=== PATIENT | female | born 1980 | race Caucasian/White ===

== ENCOUNTER 2017-02-06 13:02 | Day surgery (SDC) | payer BC ==
[2017-02-06] MEDS ORDERED: Acetaminophen 500 MG TAB PO SCH (14:00)
[2017-02-06] MEDS ORDERED: Iron Sucrose Complex 500 MG, Admixture Fee 1 EACH in Sodium Chloride 0.9% 250 ML 250 ML IVPB SCH (14:00)
[2017-02-06 14:20] VITALS: BMI 26.6
[2017-02-06] MEDS ORDERED: FLU VACC QS2017-18 36 mo. & older 0.5 ML SYRINGE IM ONE (21:00)
== END 2017-02-06 20:00 | disposition home or self-care (01) ==
LOC: L&D/OP 13:02
PROVIDERS: ATTEND Obstetrics & Gynecology
DX: O99.019 Anemia complicating pregnancy, unspecified trimester (principal); D64.9 Anemia, unspecified; Z88.1 Allergy status to other antibiotic agents; Z3A.00 Weeks of gestation of pregnancy not specified
CPT/HCPCS: 96361; 96365; 96366; J1756; J7050

== ENCOUNTER 2017-08-03 10:17 | Inpatient (IN) | payer BC ==
[2017-08-03] MEDS: Lactated Ringer's 1,000 ML IV SCH (11:00)
[2017-08-03] MEDS ORDERED: Promethazine HCl 25 MG/ML VIAL IM PRN ×2 (11:04→12:32)
[2017-08-03] MEDS ORDERED: Ondansetron HCl/PF 4 MG/2 ML Vial IVP PRN ×2 (11:04→12:32)
[2017-08-03] MEDS ORDERED: Acetaminophen 500 MG TAB PO PRN (11:04)
[2017-08-03] MEDS ORDERED: Ibuprofen 800 MG TAB PO PRN (11:06)
[2017-08-03] MEDS ORDERED: Lidocaine 1% (PF) 30 ML VIAL SC PRN (11:06)
[2017-08-03] MEDS ORDERED: NS / Oxytocin 40 units/1000ml 1,000 ML IV PRN (11:06)
[2017-08-03] MEDS ORDERED: Lactated Ringer's 1,000 ML IV SCH (11:15)
[2017-08-03] MEDS ORDERED: Betamet Acet/Betamet Na Ph 30 MG/5 ML VIAL IM SCH (11:15)
--- NOTE | 2017-08-03 11:17 | PDOC.LDHP ---
Labor and Delivery H&P Chief complaint: contractions, loss of fluid HPI: 37 year old at 36.0 wks presents due to LoF at 05:30 this AM and contractions. History of anemia in requiring iron transfusion. No PMH. Denies vaginal discharge or bleeding. Denies headache, RUQ pain, swelling, or shortness of breath. Denies fever or chills. Current gestational age (weeks): 36 OB History Details: 1. AMA 2. Anemia of Current complications: other (Anemia) Abnormal US findings: Yes (Large uterine fibroid) Current medications: pre- vitamins, iron (qd) Social history: none - Physical Exam Vital signs reviewed and normal: yes General: NAD, breathing through contractions Heart: RRR Lungs: CTAB Abdomen: gravid Extremeties: no edema FHT: category 1, variability present [place] contractions every: q3-4 min - Vaginal Exam cm dilated: 5 - OB Labs Blood type: B RH: positive Antibody Screen: negative HIV: negative RPR: negative HEPSAg: negative GBS: negative Rubella: non-immune - Assessment L&D Assessment: term patient in labor - Plan Plan: admit to L&D <Kiana Chakraborty - Last Filed: 08/03/17 11:16> Chief complaint: contractions HPI: Pt also has h/o large fibroid uterus, largest 12 cm (posterior) and has a hx hysteroscopic morcellation of intracavitary fibroid. Pt has had mild range BPs recently and presents with severe range BPs today. Dating criteria: last menstrual period (c/w 10 week CRL) Grav: 1 Para: 0 Current complications: other (Anemia, fibroid uterus, AMA) Past Medical History: Anemia Previous surgical history: other (Hysteroscopic morcellation of fibroid) - Physical Exam Vital signs reviewed and normal: yes Abnormal vital signs: HTN noted on admission, Pt given procardia and stadol with improvement - Vaginal Exam Effacement: 100% Station: -1 - OB Labs Additional Labs: NIPT and msAFP negative - Assessment L&D Assessment: term patient in labor 36w0d IUP PPROM PTL Severe range HTN, concern for possible severe pre-Eclampsia H/O anemis, resolved Uterine fibroids GBS unknown - Plan Plan: labor augmentation if indicated, GBS antibiotic prophylaxis, informed consent obtained, magnesium for seizure prophylaxis, anesthesia consult for pain management -: Due to GA, BMTZ dose given for FLM Pre-eclampsia labs still pending, start magnesium for seizure PPX due to severity of BPs at this time. Uterotonics present for delivery due to risk of PPH related to fibroids. <Cecilia Daugherty - Last Filed: 08/03/17 12:38> Allergies/Adverse Reactions: Allergies Allergy/AdvReac Type Severity Reaction Status Date / Time cefaclor [From Ceclor] Allergy Intermediate Hives Verified 02/06/17 14:12
[2017-08-03] MEDS ORDERED: NIFEdipine 10 MG CAP PO SCH (11:30)
[2017-08-03] MEDS ORDERED: NIFEdipine 10 MG CAP ONE (11:31)
[2017-08-03] MEDS ORDERED: Magnesium Sulfate 20 gm/500 ml 20 GM/500 ML BAG ONE (11:32)
[2017-08-03 11:35] LABS: Hemoglobin 13.7 g/dL (12.0-16.0); Mean Corpuscular HGB CONC 34.7 g/dL (32.0-36.0); Mean Corpuscular Hemoglobin 30.6 pg (27.0-31.0); Mean Corpuscular Volume 88.1 fl (81.0-99.0); Platelet Count 166 thou/uL (130-400); RBC Distribution Width 18.4 % (11.5-14.5); Red Blood Cell (RBC) Count 4.48 mill/uL (4.20-5.40); White Blood Cell (WBC) Count 8.5 thou/uL (4.8-10.8)
[2017-08-03] MEDS: Magnesium Sulfate 20 gm/500 ml 20 GM/500 ML BAG IVPB SCH ×2 (11:38→19:56)
[2017-08-03] MEDS ORDERED: Penicillin G Potassium 5 MILL.UNITS VIAL ONE (11:49)
[2017-08-03] MEDS ORDERED: Butorphanol Tartrate 1 MG/ML VIAL ONE (11:49)
[2017-08-03] MEDS ORDERED: Calcium Gluc 4.6 MEQ/10 ML (100 MG/ML) SLOW IVP PRN (11:50)
[2017-08-03] MEDS ORDERED: Labetalol HCl 100 MG/20 ML VIAL SLOW IVP PRN (11:58)
[2017-08-03] MEDS ORDERED: Penicillin G Potassium 5 MILL.UNITS in Sodium Chloride 0.9% 100 ML IVPB SCH (12:00)
[2017-08-03] MEDS ORDERED: Magnesium Sulfate 20 GM/WATER 500 ML BAG IVPB SCH (12:00)
[2017-08-03] MEDS ORDERED: DISCONTINUE ALL PREVIOUS NARCOTICS FS SCH (12:00)
[2017-08-03] MEDS ORDERED: Bupivacaine 0.5% 20 ML, fentaNYL Citrate/PF 400 MCG in Sodium Chloride 0.9% 72 ML EPIDURAL SCH (12:00)
[2017-08-03 12:15] LABS: Syphilis Antibody Nonreactive (Nonreactive); Syphilis Antibody Index 0.06 S/CO (<1.00 Non-Reactive)
[2017-08-03 12:16] LABS: HBSAg Index 0.16 S/CO (0-0.99); Hep B Surf Ag Non-Reactive S/CO (NonReactive)
[2017-08-03 12:21] LABS: ALT (SGPT) 18 U/L (8-55); AST (SGOT) 21 U/L (5-34); Albumin 3.5 g/dL (3.5-5.0); Alkaline Phosphatase 121 U/L (40-150); Anion Gap 16 mmol/L (10-20); BUN (Urea Nitrogen) 8 mg/dL (7.0-18.7); Bilirubin, Total 0.2 mg/dL (0.2-1.2); Calc. Creatinine Clearance 0 mL/min (70-130); Calcium 9.3 mg/dL (7.8-10.44); Carbon Dioxide 19 mmol/L (22-29); Chloride 105 mmol/L (98-107); Estimated GFR-MDRD Greater than 90; Globulin 3.4 g/dL (2.4-3.5); Glucose 83 mg/dL (70-105); Potassium 4.3 mmol/L (3.5-5.1); Protein, Total 6.9 g/dL (6.0-8.3); Sodium 136 mmol/L (136-145)
--- NOTE | 2017-08-03 12:31 | PDOC.EVN ---
Event Note - Event Note Event Note: @1230: Please see my handwritten H&P in chart. In brief: 37 yo G1 at 36 weeks, s/p prior myomectomy (still with ut fibroid) presents with contractions and BP>160/80. Now...as I was in the OR...s/p MgSo4 start, IV PCN, and celestone for EGA.
[2017-08-03] MEDS ORDERED: Naloxone HCl 0.4 mg/ml Vial IVP PRN ×2 (12:32)
[2017-08-03] MEDS ORDERED: Eucerin (Mineral Oil/Petrolatum,White) 30 gm Jar TOP PRN (12:32)
[2017-08-03] MEDS ORDERED: Acetaminophen 325 MG TAB PO PRN (12:32)
[2017-08-03] MEDS ORDERED: Lactated Ringer's 500 ML IV PRN (12:32)
[2017-08-03] MEDS ORDERED: diphenhydrAMINE 50 MG/ML VIAL IVP PRN (12:32)
[2017-08-03] MEDS ORDERED: ePHEDrine/0.9% NaCl/PF SYRINGE 50 mg/10 ml SLOW IVP PRN (12:32)
[2017-08-03] MEDS ORDERED: Misoprostol 200 MCG TAB PR PRN (12:41)
[2017-08-03] MEDS ORDERED: Carboprost 250 MCG/ML AMP IM PRN (12:41)
[2017-08-03] MEDS ORDERED: Diphenoxylate HCl/Atropine Tablet PO PRN (12:41)
[2017-08-03] MEDS ORDERED: Fentanyl 4mcg/Marcaine 0.1% Cassette 100 ML EPIDURAL SCH (12:45)
[2017-08-03] MEDS ORDERED: Communication Order-Pharmacy FS SCH (12:45)
--- NOTE | 2017-08-03 12:49 | PDOC.EVN ---
Event Note - Event Note Event Note: @6401: I was made aware that the patient has a 12cm posterior ut fibroid, per Dr Horowitz. Noted. Will have uterotonics on standby at time of delivery to prevent PPH.
--- NOTE | 2017-08-03 13:50 | PDOC.EVN ---
Event Note - Event Note Event Note: L&D check: FHTs reviewed, BPs reviewed. Stable.
[2017-08-03 14:07] LABS: Creatinine, Urine 93.43 mg/dL (47-110)
[2017-08-03] MEDS ORDERED: Penicillin G 2.5 MILL.units 50 ML ONE (15:23)
--- NOTE | 2017-08-03 15:31 | PDOC.EVN ---
Event Note - Event Note Event Note: Patient seen at bedside with Dr Chakraborty (resident). Patient comfortable s/p EMILIANO. BPs ok. Mod variability. Last check 8-9cm/90/0 station. Q&A done with patient and .
[2017-08-03] MEDS ORDERED: Penicillin G Potassium 2.5 UNITS in Syringe 0 ML IVPB SCH (16:00)
[2017-08-03] MEDS ORDERED: Penicillin G Potassium 2.5 MILL.UNITS in Sodium Chloride 0.9% 50 ML IVPB SCH (16:00)
--- NOTE | 2017-08-03 17:46 | PDOC.OPDEL ---
OB Operative/Delivery Note Delivery Dr/Surgeon: Palmer/Jeremy Assist: Staff: Jeremy Pre-Delivery Diagnosis: active labor (, severe preeclampsia) Procedure/Post Delivery Dx: spontaneous vaginal delivery Weeks gestation: 36 Anesthesia: epidural - Findings A Sex: female - 1 min: 8 - 5 min: 9 - Additional Findings/Plan Placenta delivered: manual removal (after baby cord was clamped. cord avulsed from placenta.) Repaired Obstetrical Laceration: 1st degree (midline- hemostatic (perineal)) Estimated blood loss: 500 (cytotec 800mcg given OH prophylactically due to fibroids) Compilations/Other Findings: manuanl placental delivery by Jeremy kovacs cavity sweep being negative for retained products. NICU present Baby skin to skin Vigorous Patient on Mag SEE HANDWRITTEN NOTE Post delivery plan: recovery in LICU (Mag to continue for initial BP issues. Ancef 2 grams prophylaxis for manual removal)
[2017-08-03] MEDS ORDERED: Calcium Gluconate 4.6 MEQ in Sodium Chloride 0.9% 100 ML IVPB PRN (17:53)
[2017-08-03] MEDS ORDERED: CEFAZOLIN/Water 2 GM/20 ML SYRINGE ONE (18:00)
--- NOTE | 2017-08-03 18:14 | PDOC.EVN ---
Event Note - Event Note Event Note: NOTE: S/P recent delivery...again, we will keep with IV magso4 although initial BPs may have been pain related.
[2017-08-03] MEDS ORDERED: Acetaminophen/Codeine 30-300mg Tablet PO PRN ×2 (18:34)
[2017-08-03] MEDS ORDERED: diphenhydrAMINE 25 MG CAP PO PRN (18:34)
[2017-08-03] MEDS ORDERED: Bisacodyl 10 MG SUPP PR PRN (18:34)
[2017-08-03] MEDS ORDERED: Preparation H Ointment 28 GM TUBE PR PRN (18:34)
[2017-08-03] MEDS ORDERED: Benzocaine/Menthol 20-0.5% 60 ML CAN TOP PRN (18:34)
[2017-08-03] MEDS ORDERED: Milk Of Magnesia 30 ML UDCUP PO PRN (18:34)
[2017-08-03] MEDS ORDERED: NS / Oxytocin 40 units/1000ml 1,000 ML IV SCH (18:45)
[2017-08-03] MEDS ORDERED: Measles/Mumps/Rubella 10 MCG/0.5 ML VIAL SC ONE (19:30)
[2017-08-03] MEDS ORDERED: Varicella virus, LIVE 0.5 ML VIAL SC ONE (19:30)
[2017-08-03] MEDS ORDERED: Adacel (T-DAP) 0.5 ML VIAL IM ONE (19:30)
--- NOTE | 2017-08-03 21:27 | PDOC.EVN ---
Event Note - Event Note Event Note: BP checks: no severe BPs, 140/70s.
[2017-08-03] MEDS: Ibuprofen 800 MG TAB PO SCH (21:58)
[2017-08-03] MEDS: Docusate Calcium (SURFAK) 240 MG CAP PO SCH (21:58)
[2017-08-03] MEDS ORDERED: CEFAZOLIN 2 GM in Sodium Chloride 0.9% 100 ML IVPB SCH (22:00)
[2017-08-03] MEDS ORDERED: Bupivacaine/Epinephrine 0.25% 30 ML VIAL ONE (22:22)
[2017-08-03] MEDS ORDERED: Lidocaine 2% PF 5 ML VIAL ONE (22:22)
[2017-08-04] MEDS ORDERED: CEFAZOLIN/Water 2 GM/20 ML SYRINGE SLOW IVP SCH (02:00)
[2017-08-04 05:25] LABS: Hemoglobin 12.1 g/dL (12.0-16.0); Mean Corpuscular HGB CONC 33.9 g/dL (32.0-36.0); Mean Corpuscular Hemoglobin 30.2 pg (27.0-31.0); Mean Platelet Volume 7.5 fL (7.4-10.4); Platelet Count 160 thou/uL (130-400); RBC Distribution Width 18.4 % (11.5-14.5); Red Blood Cell (RBC) Count 4.01 mill/uL (4.20-5.40); White Blood Cell (WBC) Count 13.9 thou/uL (4.8-10.8)
[2017-08-04] MEDS: Ibuprofen 800 MG TAB PO SCH ×3 (06:03→21:03)
[2017-08-04] MEDS: Magnesium Sulfate 20 gm/500 ml 20 GM/500 ML BAG IVPB SCH (06:03)
[2017-08-04 06:09] VITALS: BMI 27.7
--- NOTE | 2017-08-04 06:52 | PDOC.PP ---
Post Progress Note Post Day #: 1 Subjective: Resting well PO intake tolerated: yes Flatus: yes Ambulation: yes Vital Signs (12 hours) Temp Pulse Resp 08/04/17 04:00 98.5 F 88 16 08/04/17 00:10 98.5 F 88 16 08/03/17 20:15 98.6 F 88 16 Weight Weight 177 lb - Physical Examination General: NAD Cardiovascular: no m/r/g Respiratory: clear to auscultation bilaterally Abdominal: + bowel sounds, lochia, appropriately TTP Extremities: negative homans (B) Neurological: no gross focal deficits Psychiatric: A&Ox3, normal affect Result Diagrams: 08/04/17 04:55 08/03/17 11:14 Additional Labs: Post Labs Blood Type B POSITIVE 08/03/17 11:14 Hep Bs Antigen Non-Reactive S/CO (NonReactive) 08/03/17 11:14 (1) delivery Code(s): O60.10X0 - LABOR W DELIVERY, UNSP TRIMESTER, UNSP Status: Acute (2) Severe preeclampsia Code(s): O14.10 - SEVERE PRE-ECLAMPSIA, UNSPECIFIED TRIMESTER Status: Acute - Assessment/Plan Plan: patient s/p yesterday at 1730. Still on IV mag but pressures nonsevere. Hct ok. Continue mag until 1700 or so.
[2017-08-04] MEDS ORDERED: Prenatal Vitamin 1 TAB PO SCH (09:00)
[2017-08-04] MEDS: Docusate Calcium (SURFAK) 240 MG CAP PO SCH ×2 (12:11→21:03)
[2017-08-04] MEDS: Ferrous Sulfate 325 MG TAB PO SCH ×2 (12:11→20:24)
[2017-08-04] MEDS: Lactated Ringer's 1,000 ML IV SCH ×2 (13:06→20:23)
[2017-08-04] MEDS ORDERED: Ondansetron HCl/PF 4 MG/2 ML Vial IVP PRN (17:34)
[2017-08-04] MEDS ORDERED: diphenhydrAMINE 25 MG CAP PO PRN (17:34)
[2017-08-04] MEDS ORDERED: Misoprostol 200 MCG TAB VAG PRN (17:34)
[2017-08-04] MEDS ORDERED: Benzocaine/Menthol 20-0.5% 60 ML CAN TOP PRN (17:34)
[2017-08-04] MEDS ORDERED: Bisacodyl 10 MG SUPP PR PRN (17:34)
[2017-08-04] MEDS ORDERED: Milk Of Magnesia 30 ML UDCUP PO PRN (17:34)
[2017-08-04] MEDS ORDERED: Preparation H Ointment 28 GM TUBE PR PRN (17:34)
[2017-08-04] MEDS ORDERED: Promethazine HCl 25 MG/ML VIAL IM PRN (17:34)
[2017-08-04] MEDS ORDERED: Lanolin Ointment 7 GM TUBE TOP PRN (17:34)
[2017-08-04] MEDS ORDERED: Zolpidem Tartrate 5 MG TAB PO PRN (17:34)
[2017-08-04] MEDS ORDERED: NS / Oxytocin 40 units/1000ml 1,000 ML IV SCH (17:45)
--- NOTE | 2017-08-05 07:39 | PDOC.PP ---
Post Progress Note Post Day #: 2 Subjective: Having difficulties with and is frustrated about that. Otherwise without complaints. PO intake tolerated: yes Ambulation: yes Vital Signs (12 hours) Temp Pulse Resp BP 08/05/17 04:00 98.0 F 74 16 129/63 08/04/17 23:18 98.4 F 61 16 112/54 L 08/04/17 20:00 98.1 F 71 16 134/73 Weight Weight 177 lb - Physical Examination General: NAD Respiratory: non-labored breathing Abdominal: lochia (normal), no distention, appropriately TTP Fundus firm & at: U-2 Extremities: negative homans (B) Neurological: no gross focal deficits Psychiatric: A&Ox3, normal affect Result Diagrams: 08/04/17 04:55 08/03/17 11:14 Additional Labs: Post Labs Blood Type B POSITIVE 08/03/17 11:14 Hep Bs Antigen Non-Reactive S/CO (NonReactive) 08/03/17 11:14 - Assessment/Plan PIH with normal BPs overnight. S/p MgSO4 (finished 1700 yesterday). Continue routine management. Anticipate d/c tomorrow. consult for help.
--- NOTE | 2017-08-05 09:13 | PDOC.PP ---
Post Progress Note Post Day #: 2..WORKING ON BREAST FEEDING PO intake tolerated: yes Flatus: yes Ambulation: yes Vital Signs (12 hours) Temp Pulse Resp BP 08/05/17 08:00 98.7 F 71 16 116/65 08/05/17 04:00 98.0 F 74 16 129/63 08/04/17 23:18 98.4 F 61 16 112/54 L Weight Weight 177 lb - Physical Examination General: NAD Cardiovascular: no m/r/g, RRR Respiratory: clear to auscultation bilaterally, non-labored breathing Abdominal: + bowel sounds, lochia, no distention, appropriately TTP Result Diagrams: 08/04/17 04:55 08/03/17 11:14 Additional Labs: Post Labs Blood Type B POSITIVE 08/03/17 11:14 Hep Bs Antigen Non-Reactive S/CO (NonReactive) 08/03/17 11:14 - Assessment/Plan POST DAY 2 WITH SEVERE PIH-BLOOD PRESSURES NORMALIZED. BREAST FEEDING ISSUES- D/C IN AM..
[2017-08-05] MEDS: Ibuprofen 800 MG TAB PO SCH ×2 (09:19→18:04)
[2017-08-05] MEDS: Prenatal Vitamin 1 TAB PO SCH (09:19)
[2017-08-05] MEDS: Docusate Calcium (SURFAK) 240 MG CAP PO SCH ×2 (09:19→22:16)
[2017-08-05] MEDS: Ferrous Sulfate 325 MG TAB PO SCH ×2 (09:20→18:47)
[2017-08-06] MEDS: Ibuprofen 800 MG TAB PO SCH ×3 (02:02→13:20)
--- NOTE | 2017-08-06 07:52 | PDOC.PP ---
Post Progress Note Post Day #: 3 Subjective: breast feeding better. ready to go home. needs car seat that fits right though. Vital Signs (12 hours) Temp Pulse Resp BP 08/05/17 20:00 98.7 F 70 16 132/65 Weight Weight 177 lb - Physical Examination General: NAD Cardiovascular: no m/r/g, RRR Respiratory: clear to auscultation bilaterally, non-labored breathing Abdominal: + bowel sounds, lochia, no distention, appropriately TTP Result Diagrams: 08/04/17 04:55 08/03/17 11:14 Additional Labs: Post Labs Blood Type B POSITIVE 08/03/17 11:14 Hep Bs Antigen Non-Reactive S/CO (NonReactive) 08/03/17 11:14 - Assessment/Plan post day 3 --doing well. d/c home. has f/u in 6 weeks.
[2017-08-06 07:55] VITALS: BP 132/80; TEMP 97.8
[2017-08-06] MEDS: Prenatal Vitamin 1 TAB PO SCH (09:24)
[2017-08-06] MEDS: Docusate Calcium (SURFAK) 240 MG CAP PO SCH (09:24)
[2017-08-06] MEDS: Ferrous Sulfate 325 MG TAB PO SCH (09:24)
== END 2017-08-06 17:25 | disposition home or self-care (01) | DRG 767 ==
LOC: L&D/OP 10:17 → L&D 11:38 → 3SW 08-04 18:51
PROVIDERS: ADMIT Obstetrics & Gynecology; ATTEND Obstetrics & Gynecology
PROC: 10E0XZZ Delivery of Products of Conception, External Approach (ICD-10-PCS; principal; 2017-08-03)
PROC: 10D17Z9 Manual Extraction of Products of Conception, Retained, Via Natural or Artificial Opening (ICD-10-PCS; 2017-08-03)
PROC: 0HQ9XZZ Repair Perineum Skin, External Approach (ICD-10-PCS; 2017-08-03)
DX: O99.02 Anemia complicating childbirth (principal); O60.14X0 Preterm labor third trimester with preterm delivery third trimester, not applicable or unspecified; O34.13 Maternal care for benign tumor of corpus uteri, third trimester; O14.14 Severe pre-eclampsia complicating childbirth; O70.0 First degree perineal laceration during delivery; O73.0 Retained placenta without hemorrhage; Z37.0 Single live birth; Z3A.36 36 weeks gestation of pregnancy
CPT/HCPCS: 36415; 51702; 80053; 82570; 83735; 84156; 85027; 86780; 86850; 86900; 86901; 87340; 99285; J0595; J0702; J2001; J2540; J3010; J3475; J3490; J7050

== ENCOUNTER 2018-04-09 02:13 | Outpatient (CLI) | payer BC ==
[2018-04-09 16:57] LABS: Hemoglobin 12.5 g/dL (12.0-16.0); Mean Corpuscular Hemoglobin 29.4 pg (27.0-31.0); Mean Corpuscular Volume 86.6 fL (78.0-98.0); Mean Platelet Volume 6.1 fL (7.4-10.4); Platelet Count 264 thou/uL (130-400); RBC Distribution Width 11.1 % (11.5-14.5); Red Blood Cell (RBC) Count 4.23 mill/uL (4.20-5.40); White Blood Cell (WBC) Count 6.1 thou/uL (4.8-10.8)
[2018-04-09 17:06] LABS: BHCG - Serum Negative (NEGATIVE); Pregs Control Background? CLEAR/WHITE (CLR/WHITE); Pregs Control Bar Appear? YES (CONTROL BAR)
== END 2018-04-09 02:14 | disposition home or self-care (01) ==
LOC: LABBT 02:13
PROVIDERS: ATTEND Obstetrics & Gynecology
DX: Z01.812 Encounter for preprocedural laboratory examination (principal); D25.9 Leiomyoma of uterus, unspecified
CPT/HCPCS: 84703; 85027; 86850; 86900; 86901

== ENCOUNTER 2018-04-14 08:24 | Day surgery (SDC) | payer BC ==
[2018-04-09 16:26] VITALS: BMI 28.1
--- NOTE | 2018-04-10 10:06 | HP ---
PROPOSED DATE OF SURGERY: April 14, 2018. HISTORY OF PRESENT ILLNESS: Ms. Minor is a 38-year-old white female, G1, P1, prior vaginal delivery with history of a previous prior hysteroscopic myomectomy in the past. She is currently now approximately 8 months from vaginal delivery. Her was complicated initially by severe anemia noted in her first trimester with the patient giving history of severe menorrhagia from the fibroids. She did receive IV iron therapy x2 during the and her anemia improved significantly with that and oral iron. She is now having recurrence of the menorrhagia having a heavy flow, where she saturates a maxi pad every hour. She had a transvaginal ultrasound in December 2017 with complaint of menorrhagia showing her to have a 5 cm posterior uterine fibroid involving the myometrium in the cavity. No adnexal masses were seen. She is desiring surgical intervention with myomectomy. She desires for another child. PAST MEDICAL HISTORY: Anemia and some generalized anxiety in the past. She also has some history of migraines in the past. FAMILY HISTORY: Hypertensive disorder, diabetes, and CVA in her family. SOCIAL HISTORY: She is a nonsmoker. Is and works as a geriatric social worker. OB HISTORY: G1, P1, as noted, and in 2018. PHYSICAL EXAMINATION: VITAL SIGNS: Her height is 5 feet 7 inches, weight 180 pounds, BMI 28. Blood pressure 120/82, pulse is 70, respirations 18. HEENT EXAM: Within normal limits. CHEST: Clear to auscultation. HEART: Regular rate and rhythm. S1 and S2 heart sounds. No murmurs, rubs, or gallops. ABDOMEN: Soft, nontender. No palpable masses. PELVIC EXAM: Vulva and vagina had no lesions. Cervix had no lesions. Uterus is approximately 12 to 14 week size with posterior fibroid palpated. No adnexal masses noted. ASSESSMENT: This is a 38-year-old white female, G1, P1 with a previous hysteroscopic myomectomy with recurrence of uterine fibroid 5 cm posterior with menorrhagia. PLAN: Plan is for attempted robotic laparoscopic myomectomy. Also, the patient is aware of possibility for open myomectomy, if unable to accomplish procedure robotically. She is set for surgery on 04/14/2018. Job ID: [id number]
[2018-04-14] MEDS ORDERED: Midazolam HCl 2 mg/2 ml Vial ONE (10:14)
[2018-04-14] MEDS ORDERED: Clindamycin/D5W 900 mg/50 ml Premix Bag ONE (10:15)
[2018-04-14] MEDS ORDERED: Levofloxacin 500 mg/D5W 100 ml Premix Bag ONE (10:15)
[2018-04-14] MEDS ORDERED: Scopolamine 1.5 mg/72 hour Patch ONE (10:15)
[2018-04-14] MEDS ORDERED: Bupivacaine HCl 0.5%/Epinephrine 1:200,000/PF 30 ml Vial ONE (10:29)
[2018-04-14] MEDS ORDERED: Fentanyl 100 MCG/2 ML VIAL ONE ×2 (10:33→14:40)
[2018-04-14] MEDS ORDERED: Famotidine/PF 20 mg/2ml Vial ONE (10:48)
[2018-04-14] MEDS ORDERED: Gabapentin 300 MG CAP ONE (10:48)
[2018-04-14] MEDS ORDERED: CeleCOXIB 100 MG CAP ONE (10:48)
[2018-04-14] MEDS ORDERED: Morphine 4 MG/ML VIAL ONE (14:15)
[2018-04-14] MEDS ORDERED: Meperidine HCl/PF 25 MG/ML VIAL ONE (14:24)
[2018-04-14] MEDS ORDERED: Ketorolac Tromethamine 30 MG/ML VIAL ONE (14:24)
[2018-04-14] MEDS ORDERED: Lidocaine 1% PF 5 ML VIAL ONE (15:33)
[2018-04-14] MEDS ORDERED: Ondansetron PF 4 MG/2 ML Vial ONE (15:33)
[2018-04-14] MEDS ORDERED: Glycopyrrolate 0.2 MG/ML 5 ML SYRINGE ONE (15:33)
[2018-04-14] MEDS ORDERED: PHENYLEPHRINE-NS 100 MCG/ML 10 ML SYRINGE ONE (15:33)
[2018-04-14] MEDS ORDERED: PROPOFOL 200 MG/20 ML VIAL ONE (15:33)
[2018-04-14] MEDS ORDERED: Dexamethasone 20 MG/5 ML VIAL ONE (15:33)
[2018-04-14] MEDS ORDERED: Rocuronium Bromide 10 MG/ML (10ML VIAL) ONE (15:33)
--- NOTE | 2018-04-14 18:51 | OP ---
DATE OF PROCEDURE: 04/14/2018 PREOPERATIVE DIAGNOSES: 1. A 38-year-old white female, G1, P1 with intramural submucosal fibroid for menorrhagia. 2. Desires fertility. POSTOPERATIVE DIAGNOSES: 1. A 38-year-old white female, G1, P1 with intramural submucosal fibroid for menorrhagia. 2. Desires fertility. PROCEDURE PERFORMED: Robotic laparoscopic uterine myomectomies. ASSISTANCE SURGEONS: Cecilia Daugherty DO and Carmita Lewis PA-C. ANESTHESIA: General endotracheal. ESTIMATED BLOOD LOSS: 25 mL. COMPLICATION: None. COUNTS: Correct x2. FINDINGS: 1. Normal bilateral fallopian tubes and ovaries. 2. Posterior left uterine intramural submucosal fibroids noted, status post excision. DISPOSITION: Recovery room and then plan for discharge home later today. DESCRIPTION OF PROCEDURE: The patient previously received informed consent in regard to surgery. She was taken back to the operating room, where she received a general endotracheal anesthetic agent without complications. She was then placed in the dorsal lithotomy position with the use of Bruno stirrups and prepped and draped in the usual sterile fashion. Parisi catheter was placed at this time. The side-arm speculum was placed in vagina. Anterior lip of cervix was grasped with single-tooth tenaculum. The uterus sounded to 10 cm. A diagnostic Pinocularare uterine manipulator was then inserted. Attention was then turned to the abdomen, where perspective trocar sites were infiltrated with 0.5% Marcaine with epinephrine. A 12 mm supraumbilical incision was made. Veress needle was entered into the abdominal cavity. The abdomen was insufflated after the patient's pressure noted to be less than 5 mm, the patient's pressure of 15 approximately 4.5 L of carbon dioxide gas. Veress needle was then removed. A size 12 mm trocar was placed, and the laparoscope was introduced through the trocar sleeve confirming proper placement. Additional bilateral lower quadrant 8 mm trocars were placed along with a right upper quadrant 12 mm trocar. The patient was placed in Trendelenburg position and the robot was docked. At this time, a spinal needle had been assembled and a solution of 20 units of Pitressin and 100 units of normal saline had been prepared. 20 mL of this solution was drawn up and under direct visualization, my boiler assistant operator placed a spinal needle through the abdominal wall and then we guided the needle over the posterior portion of the uterine serosa and this was injected to aid in hemostasis during the myomectomy dissection. Once this was done, marking over the posterior fibroid with the monopolar scissor was made. This was touching the superficial areas, and marked to guide the incision, which was made vertically starting from the most superior portion of the bulge of the fibroid and the inferior portion approximately 5 cm. The edges of the serosa and myometrium of the uterus were then grasped with the bipolar fenestrated, and my boiler assistant operator used a grasper with teeth. With monopolar scissors then, we dissected the planes of the initial fibroid circumferentially in a spherical direction. There was sparing noted of the left uterine cornua near the interstitial component on the entry of the tube, which appeared to be not involved in the dissection region. There was some degenerative change noted in the fibroid as we dissect it most likely due to be approximately eight months . This made the dissection plane somewhat more indistinguishable on the left side of the uterus versus the midline. Therefore, we tugged towards the midline, dissecting the fibrous tissue, then delineating the plane with both countertraction and traction and an incision along the fibers. The specimen of the fiber was removed and placed in the posterior cul-de-sac. After we had removed the first fibroid and then we discovered another fibroid approximately 2 x 2 cm that was more intracavitary and left intramural deviating in the mid portion on the left side. This again was dissected in the plane and excised with traction and countertraction using the cobra dissector robotically in the tissue teeth. Then, we were able to excise this. This was also placed in the posterior cul-de-sac. The area was then irrigated and suctioned. Some cautery over this area made major bleeders stop and gained hemostasis. My boiler assistant operator then passed a Stratafix suture and then I closed the posterior uterine wall defect from superiorly to inferiorly in a vertical direction, grabbing first the endometrium mucosa and myometrium running continuous fashion and then back up towards from inferior to superior, grabbing the serosa myometrium back up to the vertical superior margin in a double-layer closure. Hemostasis was achieved. Once this was accomplished, the Tisseel was then placed over this for added hemostasis and prevention of adhesions. The pressure was dropped to less than 8 mmHg and no bleeding was observed. The pelvis again was irrigated and suctioned. An additional midline suprapubic incision was made under direct visualization and a size 12 mm trocar was placed under direct visualization and the Endobag was then passed through this and then we placed a two fibroid specimens in the endobag and these were secured and brought up towards the abdominal wall. The robot was then undocked. The trocars sleeves remained in situ. I broke for away from the console and then proceeded to remove the specimen through the endobag with the morcellation by grasping it with Brodie clamps and both tugging and excising the entire fibroid. Specimen was removed and sent for pathology. The endobag was also removed intact. The trocar sleeves had been removed also. Deep sutures of 0 Vicryl were placed in the fascial defect in both the umbilical and also the suprapubic fascial defect. The remainder of the trocar sites were then closed the skin with 4-0 Monocryl suture and Dermabond. The VCare was removed. Hemostasis at the cervical site was confirmed. The Parisi catheter was also removed in the operating room. The patient was awakened from anesthesia and transferred to recovery room in stable condition. Job ID: [id number]
== END 2018-04-14 17:13 | disposition home or self-care (01) ==
LOC: SDC 08:24
PROVIDERS: ATTEND Obstetrics & Gynecology
PROC: 0UB94ZZ Excision of Uterus, Percutaneous Endoscopic Approach (ICD-10-PCS; principal; 2018-04-14)
DX: D25.0 Submucous leiomyoma of uterus (principal); D25.1 Intramural leiomyoma of uterus; F41.9 Anxiety disorder, unspecified; D64.9 Anemia, unspecified; Z79.899 Other long term (current) drug therapy; Z98.890 Other specified postprocedural states
CPT/HCPCS: 88305; J0131; J0670; J1100; J1885; J1956; J2001; J2175; J2250; J2270; J2405; J2704; J3010; J3490; S0028